=== PATIENT | male | born 1965 ===

== ENCOUNTER 2020-04-28 08:06 | Outpatient (REF) | payer OTHER, SELFPAY ==
--- NOTE | 2020-04-29 11:40 | MHC.AU.P13 ---
Adult Audiological Evaluation Date of Visit: 04/28/20 Reason for Appointment: Audiologic evaluation due to increasing difficulties understanding speech, particularly when background noise is present and multiple people are speaking at the same time. Was fit with binaural hearing aids approximately 5 years ago by a different facility. Miah has not worn the hearing aids for a few years. He reports the hearing aids did not provide enough benefit for his hearing difficulties and ear symptoms. Miah also experiences bothersome bilateral tinnitus and intermittent unsteadiness and occasionally experiences discomfort from particular types of sound such as a vacuum cleaner housekeeping. Does patient feel they have a hearing loss?: Yes If Yes, Which Ear?: Both Ears When Was Hearing Difficulty First Noticed?: Childhood Has hearing been tested previously?: Yes Previous Hearing Test Results: Not available for review. Hearing Handicap Inventory HHIE SCORE: 34 Based on HHIE score, patient has: Severe perceived hearing handicap Ear History: Family History of Hearing Loss?: Yes: Father Bothersome Tinnitus/Ringing/Noises in Ears: Yes, both ears Medical History: Medical History: Head Injury Medical History: Attention Deficit Disorder and poor memory diagnosed from a Neuropsychological evaluation. Medication List: Citalopram Otoscopy: Right Ear: Unremarkable Left Ear: Non-occluding cerumen Tympanometry: Right Ear: Normal Middle Ear System (Type A) Left Ear: Normal Middle Ear System (Type A) Otoacoustic Emissions: Frequency Range Used: 7832-3355 Hz Right Ear Results: Absent Emissions Analysis: Reduced/Absent emissions suggest cochlear dysfunction Left Ear Results: Absent Emissions Analysis: Reduced/Absent emissions suggest cochlear dysfunction Hearing Evaluation: Transducer(s) Used: Insert Earphones Bone Conduction Method: Conventional Audiometry Stimuli Used: Pure Tones Right Ear: Description of Hearing: Mild dropping to moderately-severe sensorineural hearing loss. Left Ear: Description of Hearing: Mild dropping to moderately-severe sensorineural hearing loss. Speech Recognition Threshold (SRT): Method Used: Monitored Live Voice Stimuli Used: Spondee Words Right Ear: 30 Left Ear: 30 Word Discrimination: Method: Recorded Lists Word Lists Used: NU-6 Right Ear: 100% at 70 dB HL Left Ear: 96% at 70 dB HL QuickSIN: 9 dB SNR Loss. Suggests Miah experiences a moderate degree of difficulty understanding noise compared to normal hearing individuals in this controlled test environment. Comparison: Compared to the most recent evaluation: N/A results are not available for review Recommendations: Recommendations: Audiological re-evaluation in one year. Trial with amplification is recommended. Medical clearance from a physician is required before fitting. Hearing Aid Fitting will be scheduled when all materials arrive. Hearing aid(s) will be ordered after approval is received. Recommendations (Other): Given the significant difficulty of hearing and understanding speech in the work setting, recommend obtaining a [employer] assistive listening device. Sending quote to [facility] for approval of the hearing aids and accessory. Discussed the theories of tinnitus and management strategies. Also discussed realistic expectations of hearing aids, and provided handout of communication strategies to improve speech understanding as much as possible. Diagnosis: Primary Diagnosis: H90.3 Bilateral Sensorineural Hearing Loss Secondary Diagnosis: H93.13 Tinnitus, Bilateral Services Performed: Services Performed: Comprehensive Audiological Evaluation (CPT 41405) Diagnostic Otoacoustic Emissions (CPT 59967, 26+TC) Tympanometry (CPT 97811) Signature: Provider: Mylene Moran, CCC-A
== END 2020-04-28 08:07 | disposition home or self-care (01) ==
LOC: HO.SH 08:06
PROVIDERS: Visit Provider Internal Medicine
DX: H90.3 Sensorineural hearing loss, bilateral (principal); H93.13 Tinnitus, bilateral
CPT/HCPCS: 92557; 92567; 92588

== ENCOUNTER 2020-06-11 10:06 | Outpatient (REF) | payer OTHER, SELFPAY | END 2020-06-11 10:07 | disposition home or self-care (01) | LOC: HO.HAP 10:06 | PROVIDERS: PCP Internal Medicine; Referring Provider Internal Medicine; Visit Provider Internal Medicine | DX: H90.3 Sensorineural hearing loss, bilateral (principal); H93.13 Tinnitus, bilateral; Z46.1 Encounter for fitting and adjustment of hearing aid | CPT/HCPCS: V5011; V5020; V5160; V5261; V5266 ==